=== PATIENT | female | born 1930 | race Caucasian/White ===

== ENCOUNTER 2018-01-13 22:15 | Emergency (ER) | payer BC, MEDICARE ==
[~2018-01-13] VITALS: Ht 162.6 cm; Wt 49.9 kg
[~2018-01-13 22:15] MED LIST: ASPI81CH PO; ASPI81EC PO; ATOR20; AZAT50; Antivert25 MG PO; BENA20; Bactrim Ds Tab1 EACH PO; CALGLU500 PO; CELE200 PO; CEPH250A; CLOP75; CLOP75 PO; CRUTCH USE; ESOM20; ESTR2; HYDACE5 PO; HYDSUL200; HYDSUL200 PO; IBUP800 PO; IRBHYD150 PO; LEVFLO250 PO; LEVSOD125 PO; LEVSOD25; METTREX2.5 PO; MISO200 PO; MULVITMIND PO; Norco 10-325 T1 EACH PO; OXYACE5T PO; POTCHL20ER; POTCHL20ER PO; PROM25 PO; RANI150 PO; SIMV40 PO; TRIHYD5075; Valium5 MG PO; Zofran Odt4 MG SL; Zovirax400 MG PO
== END 2018-01-14 00:15 | disposition home or self-care (01) ==
LOC: ER 22:15
DX: I83.891 Varicose veins of right lower extremity with other complications (principal); Z88.0 Allergy status to penicillin; Z79.899 Other long term (current) drug therapy; I10 Essential (primary) hypertension
CPT/HCPCS: 12001; 99283

== ENCOUNTER 2019-10-14 20:13 | Emergency (ER) | payer BC ==
[~2019-10-14] VITALS: Ht 162.6 cm; Wt 49.9 kg
[2019-10-14] MEDS ORDERED: Simvastatin40 MG PO (21:10)
== END 2019-10-14 23:11 | disposition home or self-care (01) ==
LOC: ER 20:13
DX: S20.212A Contusion of left front wall of thorax, initial encounter (principal); I10 Essential (primary) hypertension; Z88.0 Allergy status to penicillin; Z79.899 Other long term (current) drug therapy; W01.0XXA Fall on same level from slipping, tripping and stumbling without subsequent striking against object, initial encounter
CPT/HCPCS: 71045; 99283-25

== ENCOUNTER 2020-02-02 11:18 | Emergency (ER) | payer BC ==
[~2020-02-02] VITALS: Ht 162.6 cm; Wt 49.9 kg
[~2020-02-02 11:18] MED LIST changes: +Simvastatin40 MG PO
[2020-02-02] MEDS ORDERED: QUET25 PO (13:26)
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
== END 2020-02-02 14:00 | disposition home or self-care (01) ==
LOC: ER 11:18
DX: F03.91 Unspecified dementia, unspecified severity, with behavioral disturbance (principal); E03.9 Hypothyroidism, unspecified; F32.9 Major depressive disorder, single episode, unspecified; I10 Essential (primary) hypertension; I25.10 Atherosclerotic heart disease of native coronary artery without angina pectoris; Z88.0 Allergy status to penicillin; Z79.899 Other long term (current) drug therapy
CPT/HCPCS: 84443; 99285